=== PATIENT | female | born 1940 | race Caucasian/White ===

== ENCOUNTER 2017-11-04 13:10 | Emergency (ER) | payer OTHER ==
[~2017-11-04] VITALS: Ht 152.4 cm; Wt 89.0 kg
[~2017-11-04 13:10] MED LIST: CALC500T PO; CARV3.1260 PO; DICL50TA11 PO; IBUP400T22 PO; LISI10TA2 PO; OMEP20TA42 PO; SIMV20TA2 PO; TRAM50TA2 PO
[2017-11-04 13:18] VITALS: Ht 152.4 cm; Wt 89.0 kg
[2017-11-04] MEDS ORDERED: ACETAMINOPHEN 500 MG TAB PO STA (18:08)
--- NOTE | 2017-11-04 18:12 | ERD ---
ER Documentation Chief Complaint Chief Complaint FEVER,COUGH,FLU HPI This is a 77-year-old female with a past medical history of hyperlipidemia, congestive heart failure, GERD presenting with presenting with fever, chills, productive cough with clear sputum and shortness of breath for several days. Her is sick with similar symptoms. The patient has had no headache or vision changes. The patient does not endorse neck or back pain. The patient denies lightheadedness or dizziness. The patient has had no chest pain. The patient denies nausea or vomiting. The patient denies abdominal pain or changes to bowel movements or urination. The patient has had no focal deficits. The patient has had no weakness or numbness or tingling to the face or extremities. ROS All systems reviewed and are negative except as per history of present illness. Medications Home Meds Reported Medications Simvastatin (Simvastatin) 20 Mg Tablet, 1 TAB PO QHS 12/18/12 Omeprazole (Omeprazole) 20 Mg Tablet.dr, 1 TAB PO QAM X 4WEEKS 12/18/12 Lisinopril* (Lisinopril*) 10 Mg Tablet, 20 MG PO DAILY 12/18/12 Carvedilol* (Carvedilol*) 3.125 Mg Tablet, 1 TAB PO BID 12/18/12 Discontinued Reported Medications Calcium Carbonate (Calcium 500) 1 Tab Tablet, 1 TAB PO BID 03/09/14 Diclofenac Sodium* (Diclofenac Sodium*) 50 Mg Tablet.dr, 1 TAB PO BID 12/18/12 Discontinued Scripts Ibuprofen* (Motrin*) 400 Mg Tab, 400 MG PO Q6, #14 TAB Prov:ALEXIS MEJÍA MD 12/04/15 Tramadol HCl (Tramadol HCl) 50 Mg Tablet, 50 MG PO Q4 Y for PAIN, #18 TAB Prov:ALEXIS MEJÍA MD 12/04/15 Allergies Allergies: Coded Allergies: No Known Allergy (Unverified , 11/04/17) PMhx/Soc History of Surgery: No Hx Neurological Disorder: No Hx Respiratory Disorders: No Hx Cardiac Disorders: Yes (HTN, HLD, CHF) Hx Psychiatric Problems: No Hx Miscellaneous Medical Probl: Yes (GERD) Hx Alcohol Use: No Hx Substance Use: No Hx Tobacco Use: No FmHx Family History: No coronary disease, No diabetes Physical Exam Vitals Vital Signs Date Time Temp Pulse Resp B/P Pulse Ox O2 Delivery O2 Flow Rate FiO2 11/04/17 19:46 100.8 83 18 106/56 95 Room Air 11/04/17 13:18 103.0 90 18 142/66 99 Physical Exam Const: No apparent distress, well-developed, well-nourished Head: Normocephalic, Atraumatic Eyes: Normal Conjunctiva. Extraocular movements intact. Pupils equal, round and reactive to light ENT: Normal External Ears, Nose and Mouth. Neck: Full range of motion. No meningismus. Resp: Clear to auscultation bilaterally, No wheezes, rales or rhonchi Cardio: Regular rate and rhythm. No murmurs, rubs or gallops Abd: Soft, non tender, non distended. Normal bowel sounds Skin: No petechiae or rashes Back: No midline tenderness. No CVA tenderness Ext: No cyanosis, or edema Neur: Awake and alert, oriented 4. Cranial nerves intact. No facial droop. Normal strength, sensation and coordination. Psych: Normal Mood and Affect Result Diagram: 11/04/17184411/04/171844 Results 24 hrs Laboratory Tests Test 11/04/17 18:45 White Blood Count 5.410^3/ul Red Blood Count 4.6410^6/ul Hemoglobin 13.8g/dl Hematocrit 41.3% Mean Corpuscular Volume 89.0fl Mean Corpuscular Hemoglobin 29.7pg Mean Corpuscular Hemoglobin Concent 33.4g/dl Red Cell Distribution Width 13.9% Platelet Count 96141^3/UL Mean Platelet Volume 10.1fl Neutrophils % 75.7% Segmented Neutrophils % (Manual) 64% Band Neutrophils % (Manual) 6% Lymphocytes % 10.0% Lymphocytes % (Manual) 11% Reactive Lymphocytes % (Manual) 2% Monocytes % 13.3% Monocytes % (Manual) 14% Eosinophils % 0.0% Basophils % 0.4% Basophils % (Manual) 1% Metamyelocytes % (manual) 3% Nucleated Red Blood Cells % 0.0/100WBC Neutrophils # 4.110^3/ul Neutrophils # (Manual) 3.510^3/ul Band Neutrophils # 0.310^3/ul Absolute Lymphocytes (Manual) 0.510^3/ul Lymphocytes # 0.510^3/ul Reactive Lymphocytes # 0.110^3/ul Monocytes # 0.710^3/ul Absolute Monocytes (Manual) 0.710^3/ul Eosinophils # 0.010^3/ul Basophils # 0.010^3/ul Basophils # (Manual) 0.010^3/ul Metamyelocytes # 0.110^3/ul Nucleated Red Blood Cells # 0.010^3/ul Platelet Estimate NORMAL Macrocytosis 1+ Sodium Level 135mmol/L Potassium Level 3.7mmol/L Chloride Level 103mmol/L Carbon Dioxide Level 23mmol/L Anion Gap 13 Blood Urea Nitrogen 12mg/dl Creatinine 0.67mg/dl Glucose Level 124mg/dl Lactic Acid Level 1.1mmol/L Calcium Level 8.1mg/dl Current Medications Medications (Trade) Dose Ordered Sig/[place] Route PRN Reason Start Time Stop Time Status Last Admin Dose Admin Acetaminophen 1000 mg 1,000 mg ONCE STAT PO 11/04/17 18:08 11/04/17 18:10 DC 11/04/17 18:27 Sodium Chloride (NS) 500 ml @ 500 mls/hr Q1H ONCE IV 11/04/17 19:30 11/04/17 20:29 DC 11/04/17 20:06 Ketorolac Tromethamine (Toradol) 15 mg ONCE STAT IV 11/04/17 20:59 11/04/17 21:00 DC 11/04/17 21:14 Oseltamivir Phosphate (Tamiflu) 75 mg ONCE ONCE PO 11/04/17 21:00 11/04/17 21:01 DC 11/04/17 21:14 Procedures/MDM MDM The patient's presentation warrants further investigation. The patient is flulike symptoms. She is febrile. A septic workup will be performed, though I have decreased suspicion for a bacterial infection based on the clinical exam. The patient will be given IV fluids in the emergency department. Flu testing will be completed. LABS The patient's blood work was obtained and reviewed. The patient's CBC shows no leukocytosis and no left shift. However, there is a bandemia. The patient is febrile and I do suspect a systemic infection. The patient is not anemic today. The patient's platelet count is unremarkable. The patient's BMP shows no signs of metabolic or electrolyte emergencies. The patient has unremarkable renal function testing. The patient's lactic acid is within normal limits. The patient's influenza testing was positive for influenza A. EKG EKG read by me: Rate/Rhythm: Regular rate and rhythm at a rate of 92 bpm Intervals: Normal [place]: Normal Impression: No evidence of ischemia or arrhythmia IMAGING CXR FINDINGS: The cardiomediastinal silhouette demonstrates enlargement of the cardiac silhouette. There are aortic calcifications. Lung volumes are shallow with bibasilar atelectasis. No pleural effusion is seen. No definite pneumothorax. No acute osseous abnormality. IMPRESSION: Mild cardiomegaly without radiographic evidence of an acute cardiopulmonary process. Bibasilar atelectasis. Electronically viewed and signed by Almita Garcia Physician on 11/04/2017 18:55 TREATMENT/DISPOSITION The patient was given IV fluids, Tylenol and Toradol for her discomfort and fever. Her fever resolved in the emergency department. The patient was not tachycardic in the emergency department. The patient was given a dose of Tamiflu as she does appear to have the flu. I have decreased suspicion for a bacterial etiology in this patient. I do not feel that she requires antibiotic coverage. After treatment, the patient felt much improved and preferred to go home and follow-up with her doctor as an outpatient. She had decision-making was enacted. I discussed the risks and benefits of home versus discharge with the patient and her family and the decision was made to discharge the patient with close follow-up. At this time, I feel that the patient stable for discharge. She will be given a prescription for Tamiflu. The patient will need follow-up with his primary care physician in 2-3 days. The patient will be given strict precautions with which to return to the emergency department. The patient's blood pressure was elevated at greater than 120/80 while in the emergency department. The patient was otherwise stable with no evidence of hypertensive urgency or emergency or end organ damage. The patient does not require admission for blood pressure control. I have discussed with the patient the risks of hypertension. I have advised the patient to follow up with the primary care physician for outpatient monitoring and treatment for hypertension in 2-3 days. I have instructed the patient to return to the ER for any new or worsening symptoms including chest pain, shortness of breath, headache, blurred vision, confusion, nausea, vomiting or LOC. Disclaimer: Inadvertent spelling and grammatical errors are likely due to EHR/ dictation software use and do not reflect on the overall quality of patient care. Note that the electronic time recorded on this note does not necessarily reflect the actual time of the patient encounter. Departure Diagnosis: Primary Impression: Influenza A Condition: AMARIS Wiggins MD Nov 04, 2017 18:12
--- NOTE | 2017-11-04 18:56 | RADRPT ---
PROCEDURE: XR Chest. CLINICAL INDICATION: Flu-like symptoms. TECHNIQUE: Single frontal view of the chest was obtained. COMPARISON: 03/09/2014. FINDINGS: The cardiomediastinal silhouette demonstrates enlargement of the cardiac silhouette. There are aorti c calcifications. Lung volumes are shallow with bibasilar atelectasis. No pleural effusion is seen. No definite pneumothorax. No acute osseous abnormality. IMPRESSION: Mild cardiomegaly without radiographic evidence of an acute cardiopulmonary process. Bibasilar atele ctasis. RPTAT: EE Almita Garcia Physician Date Time Electronically viewed and signed by Almita Garcia Physician on 11/04/2017 18:55 PH/
[2017-11-04 19:19] LABS: ABNORMAL IP MESSAGE 1; BASOPHILS % 0.4 % (0.0-2.0); HEMATOCRIT 41.3 % (37.0-47.0); HEMOGLOBIN 13.8 g/dl (12.0-16.0); LYMPHOCYTES # 0.5 10^3/ul (0.8-2.9); MEAN CORPUSCULAR HEMOGLOBIN 29.7 pg (29.0-33.0); MEAN CORPUSCULAR HGB CONC 33.4 g/dl (32.0-37.0); MEAN PLATELET VOLUME 10.1 fl (7.4-10.4); MONOCYTE # 0.7 10^3/ul (0.3-0.9); MONOCYTES % 13.3 % (0.0-11.0); NEUTROPHIL # 4.1 10^3/ul (1.6-7.5); NEUTROPHILS % 75.7 % (39.0-77.0); PLATELET COUNT 252 10^3/UL (140-415); RED BLOOD COUNT 4.64 10^6/ul (4.20-5.40); RED CELL DISTRIBUTION WIDTH 13.9 % (11.5-14.5); WHITE BLOOD COUNT 5.4 10^3/ul (4.8-10.8)
[2017-11-04] MEDS ORDERED: SOD CHLORIDE 0.9% 500 ML IV ONE (19:30)
[2017-11-04 19:33] LABS: POSITIVE DIFF @See below
[2017-11-04 19:35] LABS: CALCIUM 8.1 mg/dl (8.4-10.2); CREATININE 0.67 mg/dl (0.44-1.00); POTASSIUM 3.7 mmol/L (3.5-5.1)
[2017-11-04 20:35] LABS: BASOPHILS % (M) 1 % (0-2); METAMYELOCYTES %M 3 % (0-0); MONOCYTES % (M) 14 % (0-11); PLATELET ESTIMATE NORMAL; REACTIVE LYMPHOCYTES% (M) 2 % (0-0)
[2017-11-04] MEDS ORDERED: KETOROLAC 15 MG INJ IV STA (20:59)
[2017-11-04] MEDS ORDERED: OSELTAMIVIR 75 MG CAP PO ONE (21:00)
[2017-11-05] MEDS ORDERED: OSLT75C PO (00:48)
[2017-11-05 01:00] VITALS: BP 102/63; PULSE 74; RESP 16; TEMP 98.5
== END 2017-11-05 01:24 | disposition home or self-care (01) ==
LOC: E/R 13:10
DX: J10.1 Influenza due to other identified influenza virus with other respiratory manifestations (principal); I50.9 Heart failure, unspecified; I10 Essential (primary) hypertension
CPT/HCPCS: 71010; 80048; 83605; 85025; 87400; 93005; 96374; J1885; J7040; Z7502; Z7610

== ENCOUNTER 2018-10-26 02:50 | Observation (INO) | END 2018-10-27 12:35 | disposition home or self-care (01) ==